=== PATIENT | female | born 1955 | race Two or more races ===

== ENCOUNTER 2019-06-08 19:15 | Inpatient (IN) | payer OTHER ==
[~2019-06-08] VITALS: Ht 154.9 cm; Wt 50.2 kg
--- NOTE | 2019-06-08 19:15 | NUR ---
ED Nurse Note: pt presents to ED c/o SOB that started 30 min 21 DEALER. per EMS, pt was picked up from home for SOB. pt has a h/o HTN and CHF, she goes to dialysis M,W,F. pt has a fistula in her L arm and arrived with a 20 daniel IV in her R forearm. pt was given nitro x3 doses of 0.8 en route, per EMS, pt reported "feeling better" after the nitro. pt is on 4L NC SpO2: 100% she was put on O2 by paramedics because her SpO2 was 90% on RA.
--- NOTE | 2019-06-08 19:22 | Emergency Room Report ---
History of Present Illness General Chief Complaint: Dyspnea/Respdistress Source: Patient, EMS Present Illness HPI Disclaimer: Please note that this report is being documented using DRAGON technology. This can lead to erroneous entry secondary to incorrect interpretation by the dictating instrument. HPI: 63-year-old female with history of ESRD on hemodialysis MWF, CHF presents for evaluation of shortness of breath. Patient is primarily Norwegian-speaking but with the help of EMS with her able to translate. Symptoms began approximately 30 minutes to 1 hour ago. Worsening lower extremity pitting edema over the past few days. She did receive hemodialysis yesterday and is scheduled again for tomorrow. They found her hypoxic saturating 89% improved on 4 L. She was very hypertensive with systolics greater than 180 and given 3 tablets of 0.8 mg nitroglycerin. She improved on nasal cannula. She is still feeling short of breath. Denies recent cough, nasal congestion, denies chest pain, denies palpitations. No recent fever or chills according the patient. Denies abdominal pain or vomiting. She does not make urine. PMH: CHF, ESRD PSH: Dialysis access catheter right chest Allergies: None reported Social Hx: Denies smoking Allergies: Coded Allergies: No Known Allergies (Unverified , 06/08/19) Review of Systems All Other Systems: negative except mentioned in HPI Physical Exam Vital Signs Date Time Temp Pulse Resp B/P (MAP) Pulse Ox O2 Delivery O2 Flow Rate FiO2 06/08/19 19:09 98.2 96 20 167/100 (122) 100 Nasal Cannula 4.0 General: Awake and alert, mildly uncomfortable HEENT: NC/AT. EOMI. Neck: Supple, trachea midline Chest Wall: No tenderness, no deformity, dialysis catheter in right upper chest wall Cardiovascular: Borderline tachycardic. S1 and S2 normal. No murmur appreciated Resp: On 4 L nasal cannula. Mild tachypnea. Increased work of breathing. Bilateral crackles midway up the lungs. Mild nonproductive cough. No wheezing. Abdomen: Abdomen is soft, nondistended. Nontender Skin: Intact. No abrasions, laceration or rash over the exposed skin MSK: Normal tone and bulk. Moving all extremities. No obvious deformity. 3+ lower extremity pitting edema up to the knees bilaterally Neuro: Awake and alert. Mentating appropriately. Procedures Critical Care Time Critical Care Time Total critical care time: Approximately 45 minutes Due to a high probability of clinically significant, life threatening deterioration, the patient required the highest level of preparedness to intervene emergently and I personally spent this critical care time directly and personally managing the patient. This critical care time included obtaining a history, examining the patient, pulse oximetry, ordering and reviewing studies , ordering treatments, evaluating response to treatment and updating management plan as needed, frequent reassessment and discussion with other providers as well as arranging for ultimate disposition. This critical to care time was performed to assess and manage the high probability of life-threatening deterioration that could result in multiorgan failure. This critical care time is separate from the separately billable procedures and treating other patients. Medical Decision Making Diagnostic Impression: Primary Impression: Pulmonary edema Additional Impressions: Respiratory distress NSTEMI (non-ST elevated myocardial infarction) CHF (congestive heart failure) ER Course 63-year-old female with history of ESRD on hemodialysis MWF, CHF presents with acute shortness of breath and respiratory distress now improved on nasal cannula. Differential includes but is not limited to CHF exacerbation, fluid overload, possible COPD, NM, ACS, pneumonia, effusions. Will start broad metabolic, infectious and cardiac work-up. The patient will be given Nitropaste though at this point is improved on nasal cannula and pressures are improving as well. Does not need BiPAP at this point but will reevaluate frequently. Patient will require admission. Laboratory Tests Test 06/08/19 19:16 06/08/19 19:20 06/08/19 21:15 Arterial Blood pH 7.514 (7.350-7.450) Arterial Blood Partial Pressure CO2 30.6 mmHg (35.0-45.0) L Arterial Blood Partial Pressure O2 78.9 mmHg (75.0-100.0) Arterial Blood HCO3 24.1 mmol/L (22.0-26.0) Arterial Blood Oxygen Saturation 96.2 % (95-100) Arterial Blood Base Excess 1.7 (-2-2) Jerad Test Positive White Blood Count 11.2 K/UL (4.8-10.8) H Red Blood Count 3.89 M/UL (4.20-5.40) L Hemoglobin 11.0 G/DL (12.0-16.0) L Hematocrit 32.9 % (37.0-47.0) L Mean Corpuscular Volume 85 FL (80-99) Mean Corpuscular Hemoglobin 28.3 PG (27.0-31.0) Mean Corpuscular Hemoglobin Concent 33.5 G/DL (32.0-36.0) Red Cell Distribution Width 15.4 % (11.6-14.8) H Platelet Count 343 K/UL (150-450) Mean Platelet Volume 6.5 FL (6.5-10.1) Neutrophils (%) (Auto) 65.8 % (45.0-75.0) Lymphocytes (%) (Auto) 19.5 % (20.0-45.0) L Monocytes (%) (Auto) 11.1 % (1.0-10.0) H Eosinophils (%) (Auto) 2.3 % (0.0-3.0) Basophils (%) (Auto) 1.3 % (0.0-2.0) Prothrombin Time 10.0 SEC (9.30-11.50) Prothrombin Time INR 0.9 (0.9-1.1) PTT 28 SEC (23-33) Sodium Level 131 MMOL/L (136-145) L Potassium Level 4.4 MMOL/L (3.5-5.1) Chloride Level 96 MMOL/L (98-107) L Carbon Dioxide Level 26 MMOL/L (21-32) Anion Gap 9 mmol/L (5-15) Blood Urea Nitrogen 51 mg/dL (7-18) H Creatinine 5.7 MG/DL (0.55-1.30) H Estimate Glomerular Filtration Rate 7.6 mL/min (>60) Glucose Level 109 MG/DL (74-106) H Calcium Level 8.8 MG/DL (8.5-10.1) Total Bilirubin 0.6 MG/DL (0.2-1.0) Aspartate Amino Transferase (AST) 68 U/L (15-37) H Alanine Aminotransferase (ALT) 23 U/L (12-78) Alkaline Phosphatase 589 U/L (46-116) H Troponin I 0.330 ng/mL (0.000-0.056) 0.428 ng/mL (0.000-0.056) Pro-B-Type Natriuretic Peptide > 01293 pg/mL (0-125) H Total Protein 8.6 G/DL (6.4-8.2) H Albumin 2.4 G/DL (3.4-5.0) L Globulin 6.2 g/dL Albumin/Globulin Ratio 0.4 (1.0-2.7) L EKG Diagnostic Results EKG Time: 19:15 Rate: tachycardiac Rhythm: NSR ST Segments: no acute changes Other Impression Borderline tachycardia, normal axis, normal intervals. No acute ST segment changes. Rhythm Strip Diag. Results Rhythm Strip Time: 19:15 EP Interpretation: yes Rate: 100 Rhythm: NSR, no PVC's, no ectopy Reevaluation Time: 21:00 Last Vital Signs Date Time Temp Pulse Resp B/P (MAP) Pulse Ox O2 Delivery O2 Flow Rate FiO2 06/08/19 19:09 98.2 96 20 167/100 (122) 100 Nasal Cannula 4.0 Reevaluation Impression Labs show slightly elevated white count 11.2 but no shift. Hemoglobin stable at 11.0 the slightly anemic. Blood gas shows a pH of 7.51 and a PCO2 of 30 with a PO2 of nearly 79. This was taken on 4 L nasal cannula on the patient's arrival. Chemistry shows elevated initial troponin at 0.330 and a BN peptide greater than 35,000 consistent with the patient's bilateral pulmonary edema. She has been stable on 4 L nasal cannula. Vital signs of normalized. Discussed with [facility] who requested a second troponin as the first is outside of her baseline. She denies abdominal pain chest pain and her EKG is nonischemic. 2205: Repeat troponin is increasing. EKG remains nonischemic. She continues to deny chest pain. Ceftriaxone and azithromycin ordered. Aspirin ordered. Patient was authorized to remain at our facility for admission to the SDU by [facility] , Dr. Quinones. Remains chest pain-free with stable vitals. [facility] admitting physician is Dr. Santana. Claim Taker Dr. Mulligan was notified. Disposition: ADMITTED INPATIENT Condition: Serious Angel Cardoza MD Jun 08, 2019 19:22
[2019-06-08] MEDS ORDERED: Nitroglycerin 2% oint pkt TOPIC ONE (19:30)
[2019-06-08 19:38] LABS: BASOPHILS % (AUTO) 1.3 % (0.0-2.0); EOSINOPHILS % (AUTO) 2.3 % (0.0-3.0); HEMATOCRIT 32.9 % (37.0-47.0); LYMPHOCYTES % (AUTO) 19.5 % (20.0-45.0); MEAN CORPUSCULAR VOLUME 85 FL (80-99); MONOCYTES % (AUTO) 11.1 % (1.0-10.0); NEUTROPHILS % (AUTO) 65.8 % (45.0-75.0); PLATELET COUNT 343 K/UL (150-450); RED BLOOD COUNT 3.89 M/UL (4.20-5.40); RED CELL DISTRIBUTION WIDTH 15.4 % (11.6-14.8); WHITE BLOOD COUNT 11.2 K/UL (4.8-10.8)
[2019-06-08 19:46] VITALS: BP 177/103
--- NOTE | 2019-06-08 19:49 | NUR ---
ED Nurse Note: pt's is a bedside and reports that pt has been feeling more tired than usual since this AM. she is not on O2 at home and has been SOB since this AM
[2019-06-08 19:53] LABS: INR 0.9 (0.9-1.1)
[2019-06-08 20:07] LABS: ANION GAP 9 mmol/L (5-15); BLOOD UREA NITROGEN 51 mg/dL (7-18); CALCIUM 8.8 MG/DL (8.5-10.1); CARBON DIOXIDE 26 MMOL/L (21-32); CHLORIDE 96 MMOL/L (98-107); CREATININE 5.7 MG/DL (0.55-1.30); POTASSIUM 4.4 MMOL/L (3.5-5.1); SODIUM 131 MMOL/L (136-145)
[2019-06-08 20:18] LABS: ALANINE AMINOTRANSFERASE 23 U/L (12-78); ALBUMIN 2.4 G/DL (3.4-5.0); ALBUMIN/GLOBULIN RATIO 0.4 (1.0-2.7); ALKALINE PHOSPHATASE 589 U/L (46-116); ASPARTATE AMINO TRANSFERASE 68 U/L (15-37); BILIRUBIN,TOTAL 0.6 MG/DL (0.2-1.0)
--- NOTE | 2019-06-08 21:10 | NUR ---
ED Nurse Note: pt's BP is 188/109, ERMD notified. pt denies any px at this time, is at bedside. SpO2 100% on 4L NC, breathing is even and nonlabored.
[2019-06-08 21:19] VITALS: BP 189/103
[2019-06-08] MEDS ORDERED: cefTRIAXone 1 GM in NS 55 ML IVPB ONE (22:15)
[2019-06-08] MEDS ORDERED: Azithromycin 500 MG in NS 275 ML IV ONE (22:15)
--- NOTE | 2019-06-08 22:23 | NUR ---
ED Nurse Note: pt's 's telephone number: [phone] Steven
[2019-06-08 22:44] VITALS: BP 150/92
[2019-06-08] MEDS ORDERED: Aspirin Baby 81mg ORAL SCH (22:45)
[2019-06-08] MEDS ORDERED: ATORVASTATIN CA10 MG ORAL (23:10)
[2019-06-08] MEDS ORDERED: FUROSEMIDE20 M1 ORAL (23:10)
[2019-06-08] MEDS ORDERED: HYDRALAZINE HCL10 MG ORAL (23:10)
--- NOTE | 2019-06-08 23:15 | NUR ---
TRANSFER TO FLOOR: Patient transferred to as ordered, per TY Cardoza. Report given to RADHA Lawson. Belongings sent with pt. notified of transfer
--- NOTE | 2019-06-08 23:20 | NUR ---
NURSE NOTES: received pt from Linnea GARCIA., pt is on 4L of NC o2sat is at 98%. VS: 156/109 HR 86 T 97.0. pt states no pain at this moment. pt Bilateral Extremities +3 edema. family () at the bedside. skin intact, ecchymosis at the left side chest. IV site intact clean, and patent. bed at the lowest, locked. and alaramed. call light within reach. will continue to monitor pt with plan of care.
--- NOTE | 2019-06-08 23:21 | NUR ---
NURSE NOTES: pt has perma cath on right upper chest, and new Fistula inserted on left wrist on 01.29.19. bruit and thrill noted. belongings signed by pt. family member () encouraged to ask questions,and answered all questions that were able to answer from nursing ability.
--- NOTE | 2019-06-08 23:44 | NUR ---
NURSE NOTES: notified Dr. Santana pt just admitted to floor, and need admission orders. will continue to follow up. will wait for call back.
[2019-06-09] VITALS: BP 162/103
--- NOTE | 2019-06-09 00:37 | NUR ---
NURSE NOTES: left voice mail to Dr. Santana to obtaini admission orders. will wait for call back.
[2019-06-09] MEDS ORDERED: Nitroglycerin 2% oint pkt TOPIC SCH ×2 (01:15→02:00)
[2019-06-09] MEDS ORDERED: HydrALAZINE 25mg tab ORAL PRN (01:15)
--- NOTE | 2019-06-09 03:30 | NUR ---
NURSE NOTES: noticed nose bleeding due to dryness of nose from 4L of NC, and put humidifier in NC. will continue to monitor pt with plan of care. call light within reach.
[2019-06-09 04:00] VITALS: BP 158/74
[2019-06-09] MEDS: Nitroglycerin 2% oint pkt TOPIC SCH ×3 (05:32→17:34)
[2019-06-09 05:58] LABS: BASOPHILS % (AUTO) 1.7 % (0.0-2.0); EOSINOPHILS % (AUTO) 2.2 % (0.0-3.0); HEMATOCRIT 32.6 % (37.0-47.0); HEMOGLOBIN 11.2 G/DL (12.0-16.0); LYMPHOCYTES % (AUTO) 19.7 % (20.0-45.0); MEAN CORPUSCULAR VOLUME 84 FL (80-99); MONOCYTES % (AUTO) 10.7 % (1.0-10.0); NEUTROPHILS % (AUTO) 65.8 % (45.0-75.0); PLATELET COUNT 333 K/UL (150-450); RED BLOOD COUNT 3.89 M/UL (4.20-5.40); RED CELL DISTRIBUTION WIDTH 15.4 % (11.6-14.8); WHITE BLOOD COUNT 8.6 K/UL (4.8-10.8)
--- NOTE | 2019-06-09 05:59 | NUR ---
NURSE NOTES: waiting for Dr. Gilbert, for the HD orders. left voice mail to .will continue to follow up on one HD.
[2019-06-09 06:38] LABS: ALANINE AMINOTRANSFERASE 25 U/L (12-78); ALBUMIN 2.2 G/DL (3.4-5.0); ALBUMIN/GLOBULIN RATIO 0.3 (1.0-2.7); ALKALINE PHOSPHATASE 475 U/L (46-116); ANION GAP 10 mmol/L (5-15); ASPARTATE AMINO TRANSFERASE 56 U/L (15-37); BILIRUBIN,TOTAL 0.5 MG/DL (0.2-1.0); BLOOD UREA NITROGEN 57 mg/dL (7-18); CALCIUM 9.1 MG/DL (8.5-10.1); CARBON DIOXIDE 24 MMOL/L (21-32); CHLORIDE 97 MMOL/L (98-107); CKMB 1.8 NG/ML (0.0-3.6); CREATINE KINASE 45 U/L (26-308); CREATININE 6.1 MG/DL (0.55-1.30); HDL CHOLESTEROL 57 MG/DL (40-60); POTASSIUM 4.7 MMOL/L (3.5-5.1); SODIUM 131 MMOL/L (136-145); TRIGLYCERIDES 105 MG/DL (30-150)
--- NOTE | 2019-06-09 06:39 | NUR ---
NURSE NOTES: Dr. Ingram aware pt's Troponin level is trending high from 0.428 to 0.447, and per Dr. Ingram no new order at this moment. will continue to monitor pt with plan of care. call light within reach.
--- NOTE | 2019-06-09 07:01 | NUR ---
NURSE NOTES: spoke to Linnea from [facility] to make an appointment STAT. will wait for call back what is availability.
--- NOTE | 2019-06-09 07:19 | NUR ---
HAND-OFF: Report given to Tosin GARCIA. pt is in stable condition.
--- NOTE | 2019-06-09 07:20 | NUR ---
NURSE NOTES: Received patient sitting in bed. Awake, alert, able to make needs known. Call light within reach. Patient denies pain. Patient reused to use oxygen mask and nasal cannula, currently on room air. No respiratory distress. Will continue plan of care.
--- NOTE | 2019-06-09 07:30 | NUR ---
NURSE NOTES: Patient stated that if dialysis nurse is not here by 9am, she will leave the hospital. Rn will page Doctor Gilbert regarding this matter.
[2019-06-09 07:38] LABS: CHOLESTEROL 148 MG/DL (< 200)
[2019-06-09 08:00] VITALS: BP 171/99
--- NOTE | 2019-06-09 08:09 | NUR ---
NURSE NOTES: Dr. Gilbert called back. said that he will put dialysis order himself. Informed Doctor that patient wants to leave against medical advice if she can't dialysis now. Dr. Gilbert said that he will put dialysis order later. Charge nurse made aware.
--- NOTE | 2019-06-09 08:44 | NUR ---
NURSE NOTES: Spoke to Linnea via telephone of [facility] [phone]. Informed her that dialysis should be done today 06/09/19.
--- NOTE | 2019-06-09 08:50 | NUR ---
NURSE NOTES: Dr. Gilbert at bedside.
--- NOTE | 2019-06-09 08:59 | NUR ---
NURSE NOTES: maintenance mechanic technician at bedside. For 2Decho
[2019-06-09] MEDS: Aspirin Baby 81mg ORAL SCH (09:00)
--- NOTE | 2019-06-09 09:00 | NUR ---
NURSE NOTES: Observed patient digging her nose. With blood noted from the tissues at bedside. Educated patient not to dig her nose but patient refused to listen.
--- NOTE | 2019-06-09 09:12 | NUR ---
NURSE NOTES: C dialysis nurse/Channing at bedside.
--- NOTE | 2019-06-09 09:20 | NUR ---
NURSE NOTES: Patient's daughter/Kimberlee Mccain at bedside.
--- NOTE | 2019-06-09 09:26 | NUR ---
NURSE NOTES: Dr. Santana at bedside. Discussing plan of care.
--- NOTE | 2019-06-09 10:08 | NUR ---
*-* INSURANCE *-* ALL AVAILABLE CLINICALS HAVE BEEN FAXED TO: [facility] P: [phone] F: [phone]
--- NOTE | 2019-06-09 11:41 | Diagnostic Imaging Report ---
Indication: Shortness of breath Technique: One view of the chest Comparison: none Findings: There is extensive bilateral airspace disease in a predominantly perihilar distribution. Small amount of pleural fluid on the left is possible; right pleural spaces grossly clear. There is a right jugular tunneled dialysis catheter. The heart size is borderline enlarged. Impression: Bilateral airspace disease, likely pneumonia but pulmonary edema also possible. Possible small left pleural effusion Other findings as noted
[2019-06-09 12:00] VITALS: BP 162/102
--- NOTE | 2019-06-09 15:00 | Consultation ---
DATE OF CONSULTATION: 06/09/2019 NEPHROLOGY CONSULTATION CONSULTING PHYSICIAN: Ivonne Gilbert M.D. ATTENDING PHYSICIAN: Reggie Santana M.D. REASON FOR CONSULTATION: This is a dialysis patient. HISTORY OF PRESENT ILLNESS: This is a 63-year-old female who has been on dialysis for 4 months at [facility] for the last 4 months every Friday, Friday, Friday. Her last dialysis was 2 days ago. The patient is extremely poor historian. She adamantly denies any cardiac history. The patient presented to [facility] with severe respiratory distress. I am asked to see the patient for her nephrology problems. PAST MEDICAL HISTORY: 1. End-stage renal failure, on dialysis every Friday, Friday, Friday. 2. Congestive heart failure, although the patient denies. 3. Hypertensive cardiovascular disease. MEDICATIONS: Currently the patient is on Zithromax, Rocephin, amlodipine, baby aspirin, atorvastatin, clonidine, subcutaneous heparin, hydralazine p.r.n., metoprolol, nitroglycerin. ALLERGIES: No known drug allergies. FAMILY HISTORY: Unremarkable. SOCIAL HISTORY: Lives at home. HABITS: She is a nonsmoker and nondrinker. There is no history of illicit drug abuse. REVIEW OF SYSTEMS: HEENT: Hearing and eyesight are normal. ENDOCRINE: No history of diabetes, thyroid, or adrenal problems. RESPIRATORY: Please refer to history of present illness and past medical history. CARDIAC: She denies any cardiac issues and chest pain in particular. GENITOURINARY: She denies dysuria, frequency, urgency, or hematuria. NEUROLOGIC: No history of stroke, syncope, or Parkinson disease. PHYSICAL EXAMINATION: GENERAL: This is an elderly female who is in moderate respiratory distress. VITAL SIGNS: Blood pressure 171/99, pulse is 83 and regular, respirations 24 and unlabored, temperature 98.1 oral. HEENT: The head is normocephalic and atraumatic. Pupils are equal, round, and reactive to light and accommodation consensually. NECK: Supple. Trachea midline. There was no lymphadenopathy or thyromegaly. LUNGS: Bilateral wheezes and crackles. HEART: Regular rate and rhythm without rubs, murmurs, or gallops. CHEST: She has right-sided internal jugular PermCath. ABDOMEN: Soft and nontender. Bowel sounds were active. EXTREMITIES: No clubbing, cyanosis, or edema. NEUROLOGIC: She is alert and oriented x4. Cranial nerves II through XII intact. LABORATORY AND ANCILLARY DATA: CBC within normal limits. Chemistry, sodium 131, potassium 4.7, BUN 57, creatinine 6.1. Troponin level 0.447. EKG, sinus tachycardia, nonspecific T-wave abnormalities. A 2D echo done at bedside shows a low ejection fraction at about 35%. No valvular abnormalities. ASSESSMENT: 1. Congestive heart failure due to combination of end-stage renal failure and cardiac issues congestive heart failure. 2. End-stage renal failure, on dialysis every Friday, Friday, Friday. 3. Congestive heart failure, although the patient denies. 4. Hypertensive cardiovascular disease. PLAN: 1. Hemodialysis starting now. 2. Continue medications per list. 3. Cardiology workup. Thank you, Dr. Santana, for letting me to participate in the care of this patient. Ivonne Gilbert M.D. DR: SONNY JOB#: [id number] CC:
--- NOTE | 2019-06-09 15:17 | Cardiology Report ---
APPROVED REPORT EXAM: Two-dimensional and M-mode echocardiogram with Doppler and color Doppler. INDICATION Congestive Heart Failure M-Mode DIMENSIONS IVSd1.1 (0.7-1.1cm)Left Atrium (MM)3.6 (1.6-4.0cm) LVDd4.9 (3.5-5.6cm)Aortic Root3.5 (2.0-3.7cm) PWd1.1 (0.7-1.1cm)Aortic Cusp Exc.1.3 (1.5-2.0cm) LVDs4.1 (2.5-4.0cm) PWs1.3 cm Normal left ventricular chamber size. Global LV hypokinesis. Left ventricular ejection fraction estimated to be 30-35 %. Increased E point-interventricular septal separation c/w left ventricular dysfunction. No left ventricular hypertrophy. Possible large pleural effusion. All other cardiac chamber sizes are within normal limits. Focal aortic valve sclerosis with decrease cusp excursion c/w aortic stenosis. Thickened mitral valve leaflets with normal excursion. Mitral annulus and aortic root calcification. Pulmonic valve not well visualized. Normal tricuspid valve structure. IVC at normal size with physiologic collapse. A color flow and spectral Doppler study was performed and revealed: Mild to moderate aortic regurgitation. Peak aortic valve gradient of 23 mmHg and a mean of 13 mmHg. Pressure Gradient may be under-estimated due to low systolic function. Aortic valve area 1.4 cm2 calculated by continuity equation. Moderate mitral regurgitation. Mitral inflow velocities indicates possible pseudo normalization pattern implying moderately elevated left atrial pressure (Grade II). Mild tricuspid regurgitation. Tricuspid systolic velocities suggests peak right ventricular systolic pressure of 36 mmHg consistent with borderline mild pulmonary hypertension. Trace pulmonic regurgitation present.
--- NOTE | 2019-06-09 15:21 | Cardiology Report ---
APPROVED REPORT EKG Measurement Heart [id number] Normal sinus rhythm Nonspecific T wave abnormality Abnormal ECG
--- NOTE | 2019-06-09 15:30 | History and Physical Report ---
DATE OF ADMISSION: 06/08/2019 REASON FOR ADMISSION: Possible non-STEMI, congestive heart failure. HISTORY OF PRESENT ILLNESS: The patient is a 63-year-old female with history of end-stage renal disease, presents with congestive heart failure, which was acute. The patient's symptoms began less than one hour prior to evaluation. She noted worsening leg edema. She did receive dialysis day before yesterday, but was found to be hypoxemic. The patient also noted to be hypertensive. The patient was seen and evaluated in the emergency room and now being admitted for stat dialysis. PAST MEDICAL HISTORY: CHF and end-stage renal disease. The patient also with history of dialysis access, right chest. ALLERGIES: Reviewed and reconciled. MEDICATIONS: Reviewed and reconciled. SOCIAL HISTORY: Otherwise negative. Nonsmoker and nondrinker. Disabled. PHYSICAL EXAMINATION: GENERAL: A well-developed female, currently comfortable. VITAL SIGNS: Blood pressure is elevated 160/99, pulse 83, and respirations 24. Currently saturation 96% on room air. HEENT: Negative. NECK: Supple. No adenopathy. LUNGS: Clear anteriorly. Some crackles posteriorly. CARDIAC: S1, S2. Regular rate and rhythm. ABDOMEN: Soft, nontender. EXTREMITIES: No edema. LABORATORY DATA: Reviewed. BUN and creatinine 57/6.1. Troponins 0.33/0.428, and now 0.44. Albumin is 2.2. Sodium is 131. Blood gas is noted and reviewed. Hemoglobin 11.2. IMPRESSION: Pulmonary edema likely due to fluid overload, elevation of troponin possible non-STEMI, severe protein-calorie malnutrition, mild anemia likely of chronic disease, mild hypoxemia, and elevated TSH likely due to hypothyroidism. RECOMMENDATION: Obtain T3 and T4. Blood pressure support. Cardiology and Renal. Dialysis with ultrafiltration. Monitor clinically and recommend further and once stable will be cleared. We will proceed with discharge planning to [place] for ongoing care and evaluation. Reggie Santana M.D. DR: JOHAN JOB#: [id number] CC:
[2019-06-09 16:00] VITALS: BP 171/104
--- NOTE | 2019-06-09 17:30 | NUR ---
NURSE NOTES: Patient's daughter/Rain Sandoval at bedside.
--- NOTE | 2019-06-09 18:00 | NUR ---
NURSE NOTES: Dr. Ricketts at bedside. Discussed plan of care to patient's and patient's daughter at bedside.
--- NOTE | 2019-06-09 19:35 | NUR ---
NURSE NOTES: Received patient from Tosin Buckley RN. patient is observed sleeping in bed, no s/sx of pain noted at this time. patient is on room air, tolerating well, no s/sx of respiratory distress noted. LW shunt and R upper chest permacath noted, dressing dry and intact. RFA 20 g IV site is patent and intact, asymptomatic. bed in lowest position and locked, siderails up X3, call light within reach. will continue to monitor.
--- NOTE | 2019-06-09 19:40 | NUR ---
HAND-OFF: Report given to Dipti Dickson RN.
[2019-06-09] MEDS ORDERED: Zolpidem 5mg tab ORAL PRN (19:45)
[2019-06-09 20:00] VITALS: BP 163/104
[2019-06-09] MEDS: Heparin 5000 units/ml inj SUBQ SCH (21:00)
[2019-06-09] MEDS: Metoprolol Tartrate 50mg tab ORAL SCH (21:06)
--- NOTE | 2019-06-09 21:30 | Progress Note ---
DATE: 06/09/2019 SUBJECTIVE: The patient feels only slightly better. She is status post hemodialysis with ultrafiltration of 2.5 liters of fluid. Blood pressure parameters are slightly better but still quite elevated at times. Monitored rhythm, sinus. Troponin levels remains elevated, increasing today to 0.447. Echocardiogram revealed ejection fraction of about 35% with global hypokinesis and [id number] valvular regurgitation. OBJECTIVE: VITAL SIGNS: Blood pressure 171/104, pulse 94, respiratory rate 24, afebrile, oxygen saturation 97% on room air. CHEST: Right chest wall catheter site clean and dry. Jugular venous pressure elevated. LUNGS: Few rales. CARDIAC: Regular rhythm and rate. Normal S1 and S2 with a fourth heart sound and a 1/6 systolic murmur at apex. ABDOMEN: Soft. EXTREMITIES: With 2+ dependent edema. LABORATORY DATA: TSH is . IMPRESSION: 1. Hypertensive urgency. 2. Acute on chronic diastolic congestive heart failure. 3. Eub-HA-gvzylkqta myocardial infarction. 4. Hypothyroidism. 5. End-stage renal disease. PLAN: 1. Advance antihypertensive regimen. 2. Additional hemodialysis with ultrafiltration recommended. 3. Needs additional ultrafiltration on a regular basis. 4. Likely continue anti-platelet therapy and statin. 5. Thyroid supplementation per primary care physician. 6. Recommend transfer to tertiary care facility for cardiac catheterization and assessment of coronary anatomy. Itz Ricketts M.D. DR: Daniel JOB#: [id number] CC:
--- NOTE | 2019-06-09 21:45 | Consultation ---
DATE OF CONSULTATION: 06/08/2019 CARDIOLOGY CONSULTATION CONSULTING PHYSICIAN: Itz Ricketts M.D. REQUESTING PHYSICIAN: Reggie Santana M.D. REASON FOR CONSULTATION: Elevated troponin level. HISTORY OF PRESENT ILLNESS: This is a 63-year-old female with end-stage renal disease, who is on hemodialysis. She developed shortness of breath and states that her dialysis session was quite short yesterday. The symptoms began about an hour prior to her presentation and worsened as the time went on. The patient notes progression of leg swelling over the past few days as well. En route, the patient was hypoxic saturating only 89% on room air. She also had very labile blood pressure with recording over 180 systolic, which responded to nitroglycerin tablets given in the emergency room. The patient denies chest pressure, but feels tightness in her chest upon breathing. She denies any cough, sputum production, or upper respiratory symptoms. No fevers or chills. No nausea, vomiting, or abdominal pain. PAST MEDICAL HISTORY: Includes end-stage renal disease, hypertension, and congestive heart failure. ALLERGIES: None. MEDICATIONS: Medications prior to admission, reviewed and reconciled. SOCIAL HISTORY: Negative for smoking, alcohol, or substance abuse. FAMILY HISTORY: Not known. REVIEW OF SYSTEMS: A 10-point review of systems performed. All systems negative other than noted above. PHYSICAL EXAMINATION: VITAL SIGNS: In the emergency room, blood pressure 167/100, heart rate 96, respiratory rate 20, and afebrile. NECK: Jugular venous pressure elevated. SKIN: Dialysis catheter in right chest wall. LUNGS: With bilateral rales. CARDIAC: Regular rhythm and rate. Normal S1, S2 with a fourth heart sound. There is a 1/6 systolic murmur at the apex. Point of maximum impulse was diffuse and laterally displaced. ABDOMEN: Soft and nontender with no ascites. EXTREMITIES: With 3+ pitting edema. NEUROLOGIC: Nonfocal. DIAGNOSTIC DATA: EKG reveals sinus rhythm with nonspecific T-wave abnormalities. LABORATORY DATA: White count 11.2 and hemoglobin 11. Troponin is 0.330 and repeat was 4.428. Pro-natriuretic peptide over 35,000. Albumin 2.4. BUN 51, creatinine 5.7, sodium 131, potassium 4.4, and bicarb 26. Chest x-ray, cardiomegaly and pulmonary edema. IMPRESSION: 1. Acute on chronic systolic and diastolic congestive heart failure. 2. End-stage renal disease, on hemodialysis. 3. Acute myocardial ischemia and probable [id number] myocardial infarction. 4. Hypoxia. 5. Acute respiratory insufficiency. 6. Hypertensive urgency. PLAN: 1. Cardiac monitoring. 2. Topical nitrates and oral antihypertensives have been added. 3. Antiplatelet therapy with aspirin. 4. Hemodialysis with ultrafiltration for emergent volume management. 5. DVT prophylaxis. 6. Echocardiogram. 7. Serial troponin levels. 8. Will likely benefit from coronary angiography, which may require transfer to a tertiary care facility. Rachel Ramos JOB#: [id number] CC:
[2019-06-09] MEDS ORDERED: Dyna-Hex 2% Top Sol 2oz TOPIC ONE (23:00)
[2019-06-10] VITALS: BP 160/102
[2019-06-10] MEDS ORDERED: HydrALAZINE 50mg tab ORAL PRN (01:15)
[2019-06-10 04:00] VITALS: BP_SYST 160; BP_SYST 163; BP_DIAS 104; BP_DIAS 89
[2019-06-10 05:17] LABS: BASOPHILS % (AUTO) 2.1 % (0.0-2.0); EOSINOPHILS % (AUTO) 1.2 % (0.0-3.0); HEMATOCRIT 33.5 % (37.0-47.0); HEMOGLOBIN 11.1 G/DL (12.0-16.0); LYMPHOCYTES % (AUTO) 16.9 % (20.0-45.0); MEAN CORPUSCULAR VOLUME 87 FL (80-99); NEUTROPHILS % (AUTO) 63.8 % (45.0-75.0); PLATELET COUNT 367 K/UL (150-450); RED BLOOD COUNT 3.87 M/UL (4.20-5.40); RED CELL DISTRIBUTION WIDTH 17.2 % (11.6-14.8); WHITE BLOOD COUNT 7.9 K/UL (4.8-10.8)
[2019-06-10 05:41] LABS: ANION GAP 11 mmol/L (5-15); BLOOD UREA NITROGEN 50 mg/dL (7-18); CALCIUM 9.1 MG/DL (8.5-10.1); CARBON DIOXIDE 23 MMOL/L (21-32); CHLORIDE 96 MMOL/L (98-107); CREATININE 5.6 MG/DL (0.55-1.30); PHOSPHORUS 4.9 MG/DL (2.5-4.9); POTASSIUM 4.8 MMOL/L (3.5-5.1); SODIUM 130 MMOL/L (136-145)
[2019-06-10] MEDS: Nitroglycerin 2% oint pkt TOPIC SCH (06:01)
--- NOTE | 2019-06-10 07:10 | NUR ---
NURSE NOTES: Received pt from [facility] Res[facility]. Pt is A/Ox4; Uzbek speaking only. Denies any CP at this time; no acute distress. Pt is requesting HD, states she is swollen BLE. Pt had HD yesterday. ANALIA chest permacath, inserted 02/15 reported by patient. LW AV shunt, positive for bruit and thrill; inserted 06/02/19 reported by patient. Pt is on RA, spo2 98%. Bilateral b/s diminished and clear.Waiting for bed at [place]. Bed locked, alarmed and in lowest position. Will continue plan of care.
--- NOTE | 2019-06-10 07:40 | NUR ---
HAND-OFF: Report given to Halie Morin RN. patient is in stable condition.
[2019-06-10 08:00] VITALS: BP 147/91
[2019-06-10] MEDS ORDERED: Heparin Sod 1000 units/ml 10ml IV PRN (08:30)
--- NOTE | 2019-06-10 08:42 | General Progress Note ---
Assessment/Plan Assessment/Plan: NSTEMI CAD CHF respiratory failure anemia PLAN transfer to [place] cardiology follow up will need angiogram HD per renal monitor oxygen needs transfer to [place] by [facility] to tele Subjective Allergies: Coded Allergies: No Known Allergies (Unverified , 06/08/19) Subjective d/w cardiology needs angiogram HD with improvement Objective Last 24 Hour Vital Signs Date Time Temp Pulse Resp B/P (MAP) Pulse Ox O2 Delivery O2 Flow Rate FiO2 06/10/19 06:01 160/89 06/10/19 04:00 77 06/10/19 04:00 Room Air 06/10/19 04:00 Room Air 06/10/19 04:00 99.0 88 20 160/89 (112) 94 06/10/19 00:00 Room Air 06/10/19 00:00 99.5 82 18 160/102 (121) 98 06/10/19 00:00 82 06/09/19 21:06 109 163/104 06/09/19 21:06 109 163/104 06/09/19 20:00 Room Air 06/09/19 20:00 98.8 109 22 163/104 (123) 94 06/09/19 20:00 107 06/09/19 17:34 171/104 06/09/19 16:29 171/104 06/09/19 16:00 Room Air 06/09/19 16:00 97.9 94 24 171/104 (126) 97 06/09/19 15:10 92 06/09/19 12:31 162/102 06/09/19 12:00 Room Air 06/09/19 12:00 97.4 83 24 162/102 (122) 94 06/09/19 11:35 81 Intake and Output 06/09/19 06/10/19 19:00 07:00 Intake Total 120 ml 240 ml Output Total 2500 ml Balance -2380 ml 240 ml Intake Oral 120 ml 240 ml Output Hemodialysis UF 2500 ml Laboratory Tests 06/10/19 04:45: White Blood Count 7.9, Red Blood Count 3.87L, Hemoglobin 11.1L, Hematocrit 33.5L , Mean Corpuscular Volume 87, Mean Corpuscular Hemoglobin 28.6, Mean Corpuscular Hemoglobin Concent 33.0, Red Cell Distribution Width 17.2H, Platelet Count 367, Mean Platelet Volume 6.8, Neutrophils (%) (Auto) 63.8, Lymphocytes (%) (Auto) 16.9L, Monocytes (%) (Auto) 16.0H, Eosinophils (%) (Auto ) 1.2, Basophils (%) (Auto) 2.1H, Sodium Level 130L, Potassium Level 4.8, Chloride Level 96L, Carbon Dioxide Level 23, Anion Gap 11, Blood Urea Nitrogen 50H, Creatinine 5.6H, Estimat Glomerular Filtration Rate 7.7, Glucose Level 101 , Calcium Level 9.1, Phosphorus Level 4.9 Height (Feet): 5 Height (Inches): 1.00 Weight (Pounds): 109 Objective WDWN NAD clear breath sounds bilaterally without rhonchi or wheeze [id number] without MRG NABS nontender no HSM no CC some edema on oxygen nonfocal Reggie Santana MD Jun 10, 2019 08:42
[2019-06-10 08:44] VITALS: BP 147/91
[2019-06-10] MEDS: Metoprolol Tartrate 50mg tab ORAL SCH (08:44)
[2019-06-10] MEDS: Aspirin Baby 81mg ORAL SCH (08:44)
[2019-06-10] MEDS: Heparin 5000 units/ml inj SUBQ SCH (08:46)
--- NOTE | 2019-06-10 09:30 | NUR ---
NURSE NOTES: Per patient request, contacted Dr. Savage for HD. Pt is requesting HD due to swollen feet and palpitations. No dialysis needed per Dr. Savage. Notified Patient and family member. Contacted for [facility] transfer update. Awaiting for call back.
--- NOTE | 2019-06-10 11:07 | NUR ---
NURSE NOTES: Patient is positive for gram positive cocci in clusters x1 bottle, notified Dr. Santana. Awaiting for call back.
--- NOTE | 2019-06-10 11:12 | NUR ---
NURSE NOTES: Per , no bed yet for [facility]. Received orders for Vanco per pharmacy, ordered by Dr. Santana.
--- NOTE | 2019-06-10 11:28 | NUR ---
AMA: SEE AMA FORM. Dr. Santana notified. IV and alarm security or surveillance monitor removed. Patient is A/Ox4, steady gait. Patient is accompanied by daughter, Kimberlee Mccain.
[2019-06-10] MEDS ORDERED: Vancomycin 1.25gm/NS Premix q24h IVPB SCH (13:00)
--- NOTE | 2019-06-10 16:13 | NUR ---
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 98.2 HR 96 RR 20 B/P 167/100 2L NC WBC 11.2 NA 131 BUN 51 CR 5.7 AST 68 TROP 0.330 BNP>[id number] CXR= SMALL LEFT PLEURAL EFFUSION IS: ZITHROMAX IV ASA PO ROCEPHIN IV ADMITTED TO STEP DOWN STATUS STEP DOWN STATUS DCP RETURN HOME.
[2019-06-10] MEDS ORDERED: Dyna-Hex 2% Top Sol 2oz TOPIC SCH (20:00)
--- NOTE | 2019-06-10 20:30 | Progress Note ---
DATE: 06/10/2019 CARDIOLOGY PROGRESS NOTE SUBJECTIVE: The patient has no chest pain. She still feels swollen and has shortness of breath. She complains of palpitations, however, monitored rhythm reviewed sinus rhythm only noted. No significant ectopics. The patient is status post hemodialysis with ultrafiltration of 2.5 liters yesterday afternoon. OBJECTIVE: VITAL SIGNS: Blood pressure 147/91, pulse 79, and respirations 20. LUNGS: With few rales. CARDIAC: Regular rhythm and rate. Normal S1, S2 with a fourth heart sound. ABDOMEN: Soft and nontender. EXTREMITY: A 1+ dependent edema. LABORATORY DATA: White count 7.9 and hemoglobin 11.1. Potassium 4.8. IMPRESSION: 1. Acute on chronic systolic and diastolic congestive heart failure. 2. End-stage renal disease with volume overload. 3. Hypothyroidism. 4. Hypertensive urgency, improving. 5. Acute myocardial infarction with underlying cardiomyopathy. PLAN: 1. Continue titration of anti-failure and antihypertensive regimen. 2. Thyroid replacement per primary care physician. 3. Hemodialysis with ultrafiltration per quality control auditor. 4. Await transfer to a tertiary care facility for coronary angiography. Itz Ricketts M.D. DR: SHABANA JOB#: [id number] CC:
--- NOTE | 2019-06-11 09:01 | Discharge Summary ---
Discharge Summary Discharge Summary _ DATE OF ADMISSION: 06/08/2019 DATE OF DISCHARGE: 06/10/2019 Patient left AGAINST MEDICAL ADVICE REASON FOR ADMISSION: 63 years old female with past medical history of end-stage renal disease, on hemodialysis, congestive heart failure, presented with acute shortness of breath and respiratory distress. Upon evaluation patient was hypoxic and hypertensive. Patient required supplemental oxygen. Laboratory work-up revealed mild leukocytosis 11.2 ,sodium 131 ,BUN 51, creatinine 5.7 . Glucose 109. Troponin 0.33, pro BNP >35,000. EKG revealed sinus tachycardia , no acute ischemic changes Chest x-ray revealed bilateral airspace disease pneumonia versus pulmonary edema. Possible small left pleural effusion. Patient subsequently admitted to stepdown unit for further management. CONSULTANTS: marketing planner Dr. Ricketts senior director marketing Dr. Gilbert [facility]SE: Patient admitted to stepdown unit [employer] and senior director marketing followed. Patient undergone urgent hemodialysis with ultrafiltration with close monitoring of volumes, renal parameters and electrolytes. [employer] followed. Echocardiogram revealed global left ventricular hypokinesis with estimated left ventricular ejection fraction 30 to 35%. No evidence of left ventricular hypertrophy. Aortic stenosis noted. Mild to moderate aortic regurgitation. Moderate mitral regurgitation and mild tricuspid regurgitation. Right ventricular systolic pressure of 36 consistent with mild pulmonary hypertension. Serial troponin monitored: from initial 0.33 up to 0.44 Antihypertensive regimen was advanced. Additional hemodialysis with ultrafiltration provided. Antiplatelet therapy and statin continued. Nitroglycerin started. TSH was significantly elevated 20 , T4 within normal limits , T3 low- 2.0. Synthroid dose was optimized. Repeat thyroid function test in 1 month. Per marketing planner patient required additional ultrafiltration on a regular basis. Patient was placed on waiting list for transfer to tertiary care facility for cardiac catheterization and assessment of coronary anatomy. Supplemental oxygen provided and titrated to keep pulse oximetry above 92%. Pulmonary toilet with bronchodilator provided as needed. DVT prophylaxis provided. Supportive care provided. Hemoglobin and hematocrit were closely monitored with goal to keep hemoglobin above 7. Hemoglobin remained at baseline ; prior to signing AMA hemoglobin 11.1, hematocrit 33.5. On patient decided to leave AGAINST MEDICAL ADVICE. Prior to signing AMA pulse oximetry was stable on room air. Patient denied chest pain. Blood rpessure improved, still on the high side - 147/91. The risks and consequences of signing AGAINST MEDICAL ADVICE were discussed with patient in detail. Patient verbalized understanding, nevertheless signed AMA form and left. FINAL DIAGNOSES: NSTEMI Coronary artery disease Cardiomyopathy with ejection fraction 30 to 35% Hypertensive urgency- improved Hypertensive cardiovascular disease Acute on chronic systolic and diastolic congestive heart failure End-stage renal disease with volume overload, on HD Respiratory failure initially -resolved Hypothyroidism Anemia I have been assigned to dictate discharge summary for this account. I was not involved in the patient's management. Rachael Trevizo NP Jun 11, 2019 09:01
== END 2019-06-10 11:35 | disposition left against medical advice (07) | DRG 280 ==
LOC: EDBD 19:15 → EMR 20:26 → EDBEDREQ 22:37 → 2W 22:37 → EDBEDREQSVC 22:37 → EDBEDREQ 22:38
PROC: 5A1D70Z Performance of Urinary Filtration, Intermittent, Less than 6 Hours Per Day (ICD-10-PCS; principal; 2019-06-09)
DX: I21.4 Non-ST elevation (NSTEMI) myocardial infarction (principal); N18.6 End stage renal disease; E43 Unspecified severe protein-calorie malnutrition; J96.90 Respiratory failure, unspecified, unspecified whether with hypoxia or hypercapnia; I50.43 Acute on chronic combined systolic (congestive) and diastolic (congestive) heart failure; I13.2 Hypertensive heart and chronic kidney disease with heart failure and with stage 5 chronic kidney disease, or end stage renal disease; I42.9 Cardiomyopathy, unspecified; Z68.20 Body mass index [BMI] 20.0-20.9, adult; I16.0 Hypertensive urgency; E03.9 Hypothyroidism, unspecified; D63.8 Anemia in other chronic diseases classified elsewhere; E87.70 Fluid overload, unspecified; I35.0 Nonrheumatic aortic (valve) stenosis; I34.0 Nonrheumatic mitral (valve) insufficiency; I36.1 Nonrheumatic tricuspid (valve) insufficiency; I25.10 Atherosclerotic heart disease of native coronary artery without angina pectoris
CPT/HCPCS: 36415; 36600; 71045; 80048; 80053; 80061; 82550; 82553; 82803; 83605; 83880; 84100; 84439; 84443; 84481; 84484; 85025; 85610; 85730; 87040; 87181; 93005; 93306; 96365; 96368; 99291; J7030